=== PATIENT | female | born 1985 | race Caucasian/White ===

== ENCOUNTER 2019-07-19 14:00 | Observation (INO) | payer BC ==
[~2019-07-19] VITALS: Ht 152.4 cm; Wt 59.4 kg
[2019-07-19 17:02] LABS: BILIRUBIN,URINE NEGATIVE (NEGATIVE); BLOOD, URINE NEGATIVE (NEGATIVE); CLARITY/URINE HAZY (CLEAR); COLOR,URINE YELLOW (YELLOW); GLUCOSE,URINE NEGATIVE (NEGATIVE); KETONES,URINE NEGATIVE (NEGATIVE); LEUKOCYTE ESTERASE ,URINE NEGATIVE (NEGATIVE); NITRITE, URINE NEGATIVE (NEGATIVE); PH,URINE 6.5 (5.0-8.0); PROTEIN URINE NEGATIVE (NEGATIVE); UROBILINOGEN,URINE 0.2 (0.2-1.0)
== END 2019-07-19 17:35 | disposition home or self-care (01) ==
LOC: SPU 14:00
PROVIDERS: ADMIT Obstetrics & Gynecology; ATTEND Obstetrics & Gynecology
DX: O36.8130 Decreased fetal movements, third trimester, not applicable or unspecified (principal); Z3A.31 31 weeks gestation of pregnancy
CPT/HCPCS: 59025; 76819; 81003; G0378; 99218

== ENCOUNTER 2019-09-01 12:40 | Observation (INO) | payer BC ==
[~2019-09-01] VITALS: Ht 152.4 cm; Wt 66.7 kg
== END 2019-09-01 13:30 | disposition home or self-care (01) ==
LOC: SPU 12:40
PROVIDERS: ADMIT Obstetrics & Gynecology; ATTEND Obstetrics & Gynecology
DX: O26.853 Spotting complicating pregnancy, third trimester (principal); O42.92 Full-term premature rupture of membranes, unspecified as to length of time between rupture and onset of labor; Z3A.37 37 weeks gestation of pregnancy
CPT/HCPCS: 81002; G0378

== ENCOUNTER 2019-09-03 03:36 | Inpatient (IN) | payer BC ==
[~2019-09-03] VITALS: Ht 152.4 cm; Wt 66.2 kg
[2019-09-03] MEDS: LR 1,000 ML IV SCH ×2 (03:45→05:45)
[2019-09-03] MEDS ORDERED: OXYTOCIN/0.9 % SODIUM CHLORIDE 1,000 ML IV ONE (04:02)
[2019-09-03] MEDS ORDERED: OXYCODONE/ACETAMINOPHEN 5-325 TABLET PO PRN (05:00)
[2019-09-03] MEDS ORDERED: HYDROcodone/ACETAMIN 5-325 MG TAB (NORCO/ VICODIN) PO PRN (05:00)
[2019-09-03] MEDS ORDERED: OXYTOCIN/0.9 % SODIUM CHLORIDE 1,000 ML IV SCH (05:47)
[2019-09-03] MEDS: IBUPROFEN 800 MG TABLET PO PRN ×3 (05:55→16:10)
[2019-09-03] MEDS ORDERED: DERMOPLAST SPRAY TP PRN (06:00)
[2019-09-03] MEDS ORDERED: WITCH HAZEL LEAF 1 MED.PAD MED.PAD TP PRN (06:00)
[2019-09-03] MEDS ORDERED: IBUPROFEN 800 MG TABLET ONE (06:11)
[2019-09-03] MEDS ORDERED: DERMOPLAST SPRAY TP ONE (06:20)
[2019-09-03] MEDS ORDERED: WITCH HAZEL LEAF 1 MED.PAD MED.PAD TP ONE (06:20)
[2019-09-03 07:08] LABS: BASOPHILS % (AUTO) 0.6 % (0.0-2.0); EOSINOPHILS # (AUTO) 0.1 K/uL (0.0-0.4); EOSINOPHILS % (AUTO) 0.8 % (0.0-4.0); HEMATOCRIT 36.7 % (36-48); HEMOGLOBIN 12.8 g/dL (12.0-16.0); LYMPHOCYTES # (AUTO) 1.8 K/uL (1.0-5.5); LYMPHOCYTES % (AUTO) 20.6 % (20.5-51.5); MEAN CORPUSCULAR HEMOGLOBIN 34 pg (27-31); MEAN CORPUSCULAR HGB CONC 35 % (32-36); MEAN CORPUSCULAR VOLUME 97 fL (79.0-98.0); MONOCYTES # (AUTO) 0.7 K/uL (0.0-1.0); MONOCYTES % (AUTO) 8.2 % (1.7-9.3); NEUTROPHILS % (AUTO) 69.8 % (40.0-70.0); PLATELET COUNT (AUTO) 160 K/uL (130-430); RED CELL DISTRIBUTION WIDTH 13.4 % (9.0-15.0); WHITE BLOOD COUNT (AUTO) 8.6 K/uL (4.8-10.8)
[2019-09-03 08:34] VITALS: BP_SYST 143
[2019-09-03] MEDS ORDERED: MINERAL OIL 30 ML UDC PO ONE (15:04)
[2019-09-03] MEDS ORDERED: LIDOCAINE PF 1% 30ML(POUR BTL) INJ ONE (15:04)
[2019-09-04] MEDS: IBUPROFEN 800 MG TABLET PO PRN ×2 (00:05→06:22)
[2019-09-04 07:38] LABS: BASOPHILS % (AUTO) 0.4 % (0.0-2.0); EOSINOPHILS # (AUTO) 0.2 K/uL (0.0-0.4); EOSINOPHILS % (AUTO) 1.9 % (0.0-4.0); HEMATOCRIT 32.6 % (36-48); HEMOGLOBIN 11.4 g/dL (12.0-16.0); LYMPHOCYTES # (AUTO) 1.3 K/uL (1.0-5.5); LYMPHOCYTES % (AUTO) 14.3 % (20.5-51.5); MEAN CORPUSCULAR HEMOGLOBIN 34 pg (27-31); MEAN CORPUSCULAR HGB CONC 35 % (32-36); MEAN CORPUSCULAR VOLUME 98 fL (79.0-98.0); MONOCYTES # (AUTO) 0.5 K/uL (0.0-1.0); MONOCYTES % (AUTO) 5.4 % (1.7-9.3); NEUTROPHILS # (AUTO) 6.9 K/uL (1.8-7.7); PLATELET COUNT (AUTO) 131 K/uL (130-430); RED BLOOD CELL COUNT(AUTO) 3.34 MIL/uL (4.2-6.2); RED CELL DISTRIBUTION WIDTH 13.1 % (9.0-15.0); WHITE BLOOD COUNT (AUTO) 8.9 K/uL (4.8-10.8)
== END 2019-09-04 10:50 | disposition home or self-care (01) | DRG 807 ==
LOC: SPU 03:36
PROVIDERS: ADMIT Obstetrics & Gynecology; ATTEND Obstetrics & Gynecology
PROC: 10E0XZZ Delivery of Products of Conception, External Approach (ICD-10-PCS; principal; 2019-09-03)
PROC: 0HQ9XZZ Repair Perineum Skin, External Approach (ICD-10-PCS; 2019-09-03)
DX: O70.0 First degree perineal laceration during delivery (principal); Z37.0 Single live birth; Z3A.38 38 weeks gestation of pregnancy
CPT/HCPCS: 36415; 85025; 86592; 86886; 86900; 86901; J2001; J2590; J7120

== ENCOUNTER 2020-08-18 16:16 | Emergency (ER) | payer BC ==
[~2020-08-18] VITALS: Ht 152.4 cm; Wt 50.8 kg
[2020-08-18 16:28] VITALS: BP_SYST 95
--- NOTE | 2020-08-18 16:33 | NUR ---
Patient triaged and placed in waiting room. VSS and patient appears in no acute distress at this time. Awaiting available bed, and MD notified of need for MSE.
--- NOTE | 2020-08-18 16:45 | NUR ---
ER Dr. Betts at bedside examining patient.
[2020-08-18 17:23] LABS: HCG,QUAL RESULT NEGATIVE (NEGATIVE)
--- NOTE | 2020-08-18 18:53 | NUR ---
Patient to ER CHAIR for evaluation. Side rails up.
--- NOTE | 2020-08-18 18:54 | NUR ---
Ayana chery in EDM - 08/18/20 at 2017 by [email or web address] CASEY Haynes at bedside examining patient.
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
[2020-08-18 18:56] VITALS: BP_SYST 112
--- NOTE | 2020-08-18 18:56 | NUR ---
Patient given written and verbal discharge instructions and verbalizes understanding. ER MD discussed with patient the results and treatment provided. Patient in stable condition. ID arm band removed. Rx of NAPROSYN given. Patient educated on pain management and to follow up with PMD. Pain Scale 0/10 Opportunity for questions provided and answered. Medication side effect fact sheet provided.
--- NOTE | 2020-08-18 19:27 | NUR ---
Note vik in EDM - 08/18/20 at 2014 by [email or web address] Patient to ER bed 03 to lee ann for evaluation. Side rails up. Report given to ARIADNA TONG
== END 2020-08-18 18:56 | disposition home or self-care (01) ==
LOC: SED 16:16
DX: S00.03XA Contusion of scalp, initial encounter (principal); Y04.8XXA Assault by other bodily force, initial encounter; Y93.89 Activity, other specified; Y92.89 Other specified places as the place of occurrence of the external cause; Y99.8 Other external cause status
CPT/HCPCS: 70450-TC; 70486-TC; 76376; 84703; 99285